=== PATIENT | male | born 1970 | race Caucasian/White ===

== ENCOUNTER → 2017-12-22 16:20 | Outpatient (CLI) | payer OTHER, SELFPAY ==
[2017-12-22 17:36] LABS: Absolute Lymphocyte Count 1.92 X10^3/ul (0.83-4.51); Absolute Neutrophil Count 3.3 X10^3/uL (2.0-7.7); Basophil# 0.04 X10^3/uL; Basophil% 0.7 % (0-1); Eosinophil# 0.05 X10^3/uL; Eosinophils% 0.8 % (0-5); Hematocrit 49.4 % (40-54); Hemoglobin 16.7 g/dl (13.0-16.5); Lymphocyte # 1.92 X10^3/ul (4.0); Lymphocyte % 32.5 % (19-41); Mean Corp Hgb Conc 33.8 g/gl (32-36); Mean Corpuscular Hgb 29.8 pg (27.0-32.0); Mean Corpuscular Volume 88.1 fL (80-94); Mean Platelet Vol. 12.5 fl (6.2-12.0); Monocyte# 0.59 X10^3/uL; Neutrophil % 55.8 % (47-70); Platelet Count 180 K/mm3 (150-450); RBC Distribution Width CV 14.4 % (11.6-14.6); RBC Distribution Width SD 46.7 fl (35.1-43.9); Red Blood Count 5.61 M/mm3 (4.6-6.2); White Blood Count 5.9 K/mm3 (4.4-11.0)
[2017-12-22 17:50] LABS: POSITIVE COUNT NO; POSITIVE DIFFERENTIAL NO; POSITIVE MORPHOLOGY NO
[2017-12-22 17:56] LABS: ALB/GLOB Ratio 1.1 RATIO (0.9-2.4); AST(SGOT) 25 U/L (15-37); Alanine Aminotransfer ALT/SGPT 37 U/L (16-61); Alkaline Phosphatase 65 U/L (45-117); Anion Gap 8 (5-15); BUN 11 mg/dL (7-18); BUN/Creat Ratio 13.1 RATIO (10-20); Calcium,Total 9.6 mg/dL (8.5-10.1); Chloride 101 mmol/L (98-107); Cholesterol 162 mg/dL (200); Creatinine, Serum 0.84 mg/dL (0.70-1.30); EST Glomerular Filtration Rate 104 mL/min (>60); Est Glom Filt Rate - Afr Amer 125 mL/min (>60); Globulin 3.7 g/dL (2.2-4.2); Glucose 88 mg/dL (74-106); High Density Lipoprotein 57 mg/dL; Potassium 4.8 mmol/L (3.5-5.1); Protein, Total 7.7 g/dL (6.4-8.2); Sodium Level 139 mmol/L (136-145); Triglycerides 78 mg/dL; Very Low Density Lipoprotein 16 mg/dL (5-40)
== END ==
PROVIDERS: Family Provider Family Medicine; PCP Family Medicine; Visit Provider Family Medicine
DX: Z00.00 Encounter for general adult medical examination without abnormal findings (principal)
CPT/HCPCS: 36415; 80053; 80061; 85025

== ENCOUNTER 2023-09-11 17:52 | Emergency (ER) | payer OTHER, SELFPAY ==
[2023-09-11 17:56] VITALS: BP 158/102; PULSE 83; RESP 18; TEMP 36.2; O2SAT 100; BMI 71.0
--- NOTE | 2023-09-11 18:14 | EX.ED.DYSGE1 ---
HPI History of Present Illness Chief Complaint: Flank Pain Informant: patient Narrative Narrative: Pepito primarily with right flank and right lower quadrant area pain. This patient has been straining to get urine out for some time now. He used to be on Flomax. He has been on saw palmetto for a while. He has a history of BPH. He is still passing urine. It does not have significant odor but it does burn somewhat. But patient's also been having pain mostly on the right side. 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 He had this repaired surgery about 7 or 8 years ago and has really not had problems since. He has not had fevers or chills. He is not really eating but he is not actually nauseated. He is moving bowels but less because he is not eating. [facility] Medical History Bladder fistula Home Medications tamsulosin 0.4 mg capsule 0.4 mg PO DAILY 03/21/16 [History Last Taken 04/02/16 22:00] hydrocodone-acetaminophen 5-325mg 5mg-325mg 1 tab PO Q4H PRN PRN Pain ##15 04/04/16 [Rx Last Taken Unknown] sulfamethoxazole 800 mg-trimethoprim 160 mg tablet 1 tab PO BIDCM ##7 04/07/16 [Rx Last Taken Unknown] tamsulosin 0.4 mg capsule (Flomax) 0.4 mg PO DAILY #30 caps 09/11/23 [Rx Last Taken Unknown] Allergy/AdvReac Type Severity Reaction Status Date / Time erythromycin base AdvReac Other Verified 09/11/23 17:55 [Erythromycin Base] Social History Smoking Status: Never smoker ROS ROS ED ROS Narrative A complete review of systems was performed and is negative except as documented in the history of present illness. Some specific details below. Constitutional: No recent fevers or chills. He does have some malaise EYE: No visual complaints or pain. ENT: No difficulty swallowing. No swelling. No pain. CV: No chest pain or palpitations. Respiratory: No dyspnea. No hemoptysis. No difficulty taking breaths. GI: Please see history of present illness. : See history of present illness Musculoskeletal: No recent trauma. No pains. Skin: No rash. Nondiaphoretic. Neuro: No weakness or numbness. Endocrine: No polyuria or polydipsia. EXAM Physical Exam Narrative Exam Narrative: CONSTITUTIONAL: Patient is nontoxic in appearance. The patient looks comfortable. HEENT: No notable trauma. Mucous membranes moist. EYES: No conjunctival injection. No proptosis. CARDIOVASCULAR: Regular rate. Regular rhythm. No notable murmur. No JVD. RESPIRATORY: No respiratory distress. Breathing is unlabored. No wheezes. No rhonchi. No rales. No pain with a deep breath. GASTROINTESTINAL: Not distended. Bowel sounds are normal. Does have some mild tenderness low and toward the right and a little bit in the middle. I do not feel an enlarged bladder on exam. He does have some redundant tissue because he has lost over 50 pounds in the last 6 months intentionally through intermittent fasting. GENITOURINARY: No tenderness over the bladder. No CVA tenderness. MUSCULOSKELETAL: Atraumatic. No peripheral edema. NEUROLOGICAL: Patient is alert and appropriate. No focal deficit noted. SKIN: No noted rashes. No diaphoresis. PSYCHIATRIC: Patient is calm. Mood is appropriate. Const Vital Signs: 09/11/23 17:56 09/11/23 18:18 Temperature 97.2 F L 97.2 F L Temperature Source Temporal Temporal Pulse Rate 83 83 Respiratory Rate 18 18 Blood Pressure 158/102 H 158/102 H Blood Pressure Mean 120 120 Pulse Ox 100 100 Oxygen Delivery Method Room Air Room Air MDM MDM MDM Narrative Medical decision making narrative: My independent interpretation of the patient's CT of the abdomen shows a very large bladder and bilateral hydroureter and hydronephrosis. This is likely due to his history of BPH and being off medications. Final reading is similar. They do note some mild thickening of the bladder. Patient's CBC is overall normal. Patient's electrolytes do show a slight bump of his creatinine 1.31. This is likely due to ongoing urinary obstruction. I believe he has overflow incontinence which is what is causing frequency. Lactate is normal LFTs are normal. Knoop Urine shows no signs of infection. Nurse was placing a Mcqueen. The Mcqueen would only go in about 1 cm then would stop. Patient has had a catheter in the past. I attempted and had the same problem. We then got a 14 [place] coud?. This was able to pass through the narrowing. It was able to pass through the prostate. It took a single attempt. We got clear pale yellow urine out without any blood. He tolerated this well. We let him rest. He has now had about 1200 cc out. He feels markedly better. Plan will be to get him home. He will follow-up with his urologist with making a call in the morning. I will get him started back on Flomax. This is on his med list but he has not been on it for a couple years. Lab Data Attestation: I reviewed the patient's lab results. Labs: Laboratory Results - last 24 hr 09/11/23 09/11/23 18:20 18:47 WBC 7.0 RBC 5.48 Hgb 16.0 Hct 49.2 MCV 89.8 MCH 29.2 MCHC 32.5 RDW Std Deviation 47.7 H RDW Coeff of Tono 14.5 Plt Count 272 MPV 10.4 Immature Gran % (Auto) 0.300 Neut % (Auto) 67.7 Lymph % (Auto) 12.6 L [place] % (Auto) 15.4 H Eos % (Auto) 3.4 Baso % (Auto) 0.6 Absolute Neuts (auto) 4.8 Absolute Lymphs (auto) 0.88 Nucleated RBC % 0 Sodium 138 Potassium 3.4 L Chloride 105 Carbon Dioxide 24.0 Anion Gap 9 BUN 11 Creatinine 1.31 H Estim Creat Clear Calc 74.95 Est GFR (MDRD) Af Amer 73 Est GFR (MDRD) Non-Af 61 BUN/Creatinine Ratio 8.4 L Glucose 111 H Lactic Acid 1.9 Calcium 10.0 Total Bilirubin 0.80 AST 26 ALT 32 Alkaline Phosphatase 92 Total Protein 8.3 H Albumin 3.8 Globulin 4.5 H Albumin/Globulin Ratio 0.8 L Lipase 33 Urine Color Yellow Urine Clarity Clear Urine pH 7.0 Ur Specific [place] 1.005 Urine Protein Negative Urine Glucose (UA) Normal Urine Ketones Negative Urine Occult Blood 25 H Urine Nitrite Negative Urine Bilirubin Negative Urine Urobilinogen Normal Ur Leukocyte Esterase 25 H Urine RBC 0 SEEN Urine WBC 0-5 SEEN Ur Squamous Epith Cells 0-5 SEEN Urine Bacteria 0 SEEN Urine Mucus 0 SEEN Radiography Diagnostic Testing: Clinical Impression(s) from Imaging Studies Abdomen/Pelvis CT 09/11/23 19:37 IMPRESSION: Mild bilateral hydronephrosis with slight perinephric stranding. Bilateral hydroureters. No stone is identified. Slight wall thickening of the urinary bladder. Electronically Signed: Mikel Hernandez DO at 20:22 EST , Discharge Plan Triage Chief Complaint: Flank Pain Other Complaint: Lower Extremity Injury ED Provider: Adihtya Perkins Dx/Rx/DC Orders Clinical Impression: Acute urinary obstruction, Elevated serum creatinine, History of BPH Instructions: ED Mcqueen Catheter, Care Prescriptions: New tamsulosin [Flomax] 0.4 mg capsule 0.4 mg PO DAILY Qty: 30 0RF No Action tamsulosin 0.4 MG capsule 0.4 mg PO DAILY hydrocodone-acetaminophen 1 TABLET tablet 1 tab PO Q4H PRN PRN (Reason: Pain) Qty: 15 0RF sulfamethoxazole-trimethoprim 1 TABLET tablet 1 tab PO BIDCM Qty: 7 0RF Primary Care Provider: Hira Parker Referrals: Bc Bell MD [Med Staff - Active Staff] - 3-5 Days Hira Parker DO [Primary Care Provider] - Disposition Disposition: Home, Self Care
[2023-09-11 18:18] VITALS: BP 158/102; PULSE 83; RESP 18; TEMP 36.2; O2SAT 100
[2023-09-11 18:57] LABS: Bacteria 0 SEEN /hpf (None Seen); Mucous, Urine 0 SEEN /hpf (<or=2+); Red Blood Cells-Urine 0 SEEN /hpf (0-5)
[2023-09-11 18:59] LABS: Absolute Lymphocyte Count 0.88 X10^3/uL (0.83-4.51); Absolute Neutrophil Count 4.8 X10^3/uL (2.0-7.7); Basophil# 0.04 X10^3/uL; Basophil% 0.6 % (0-1); Eosinophil# 0.24 X10^3/uL; Eosinophils% 3.4 % (0-5); Hematocrit 49.2 % (40-54); Lymphocyte # 0.88 X10^3/ul (0.83-4.51); Lymphocyte % 12.6 % (19-41); Mean Corp Hgb Conc 32.5 g/dL (32-36); Mean Corpuscular Hgb 29.2 pg (27.0-32.0); Mean Corpuscular Volume 89.8 fL (80-94); Mean Platelet Vol. 10.4 fl (6.2-12.0); Monocyte# 1.08 X10^3/uL; Monocyte% 15.4 % (0-10); NRBC Flagged by Analyzer 0 % (0-5); Neutrophil # 4.75 X10^3/uL (2.7-7.7); Neutrophil % 67.7 % (47-70); Platelet Count 272 K/mm3 (150-450); RBC Distribution Width CV 14.5 % (11.6-14.6); RBC Distribution Width SD 47.7 fl (35.1-43.9); Red Blood Count 5.48 M/mm3 (4.6-6.2)
[2023-09-11 19:02] LABS: Color, Urine Yellow (Yellow); Glucose, Dipstick Normal (Normal); Ketone-Dipstick Negative (Negative); Leukocyte Esterase-Dipstick 25 /ul (Negative); Nitrite-Dipstick Negative (Negative); Occult Blood-Urine 25 /ul (Negative); Protein-Dipstick Negative (Negative); Specific Gravity, Urine 1.005 (1.002-1.030); Urine Bilirubin Dipstick Negative (Negative); Urine Clarity Clear (Clear); Urine Urobilinogen Normal (Normal)
[2023-09-11 19:07] LABS: Squamous Epithelial Cells - UA 0-5 SEEN /hpf (0-5); White Blood Cells 0-5 SEEN /hpf (0-5)
[2023-09-11] MEDS: Ondansetron 4 MG/2 ML Vial IV (19:15)
[2023-09-11] MEDS: 0.9% Normal Saline (1000mL) 1,000 ML 1000 ML IV (19:15)
[2023-09-11 19:19] LABS: ALB/GLOB Ratio 0.8 RATIO (0.9-2.4); AST(SGOT) 26 U/L (15-37); Alanine Aminotransfer ALT/SGPT 32 U/L (16-61); Albumin, Serum 3.8 g/dL (3.2-5.0); Alkaline Phosphatase 92 U/L (45-117); Anion Gap 9 (5-15); BUN 11 mg/dL (7-18); BUN/Creat Ratio 8.4 RATIO (10-20); Chloride 105 mmol/L (98-107); Creatinine, Serum 1.31 mg/dL (0.70-1.30); EST Glomerular Filtration Rate 61 mL/min (>60); Est Glom Filt Rate - Afr Amer 73 mL/min (>60); Estimated Creatinine Clearance 74.95 ml/min; Globulin 4.5 g/dL (2.2-4.2); Glucose 111 mg/dL (74-106); Lipase 33 U/L (13-75); Potassium 3.4 mmol/L (3.5-5.1); Protein, Total 8.3 g/dL (6.4-8.2); Sodium Level 138 mmol/L (136-145)
--- NOTE | 2023-09-11 19:37 | CT_ITS ---
STUDY: CT ABDOMEN AND PELVIS WITH CONTRAST REASON FOR EXAM: Male, 53 years old. Pain RADIATION DOSAGE (If Supplied By Facility): CTDIvol = ( 16.30 ) mGy, DLP = ( 1308.07 ) mGycm TECHNIQUE: Transaxial images were obtained from the dome of the diaphragm to the symphysis pubis without oral contrast. IV 100mL Isovue-300 was administered. Sagittal and coronal images were reconstructed. Individualized dose optimization techniques were used for this CT. COMPARISON: March 02, 2016. FINDINGS: The visualized lung bases are unremarkable. The visualized portions of the heart are within normal limits. Normal liver. Nonvisualization of the gallbladder. No significant dilatation of the extrahepatic biliary system. Normal spleen. Normal pancreas. Normal bilateral adrenal glands. Mild bilateral hydronephrosis with slight perinephric stranding. Bilateral hydroureters. No stone is identified. Normal visualized stomach. Normal small intestine. Normal colon. The appendix is not visualized. Normal abdominal aorta. Normal inferior vena cava. Normal retroperitoneum. Slight wall thickening of the urinary bladder. Normal abdominal wall. Normal osseous structures. CT/Abdomen/Pelvis W IV Cont ONLY IMPRESSION: Mild bilateral hydronephrosis with slight perinephric stranding. Bilateral hydroureters. No stone is identified. Slight wall thickening of the urinary bladder. Electronically Signed: Mikel Hernandez DO at 20:22 EST ,
[2023-09-11 20:09] LABS: Lactic Acid 1.9 mmol/L (0.4-1.9)
[2023-09-11] MEDS: Morphine 4 MG/ML Syringe IV (20:10)
[2023-09-11 22:53] VITALS: BP 134/75; PULSE 62; RESP 16; TEMP 36.7; O2SAT 100
[2023-09-11 22:55] VITALS: BP 134/75; PULSE 62; RESP 16; TEMP 36.7; O2SAT 100
== END 2023-09-11 22:56 | disposition home or self-care (01) ==
PROVIDERS: Emergency Provider Emergency Medicine; PCP Family Medicine; Visit Provider Emergency Medicine
DX: N13.30 Unspecified hydronephrosis (principal); N40.0 Benign prostatic hyperplasia without lower urinary tract symptoms; N13.4 Hydroureter; R79.89 Other specified abnormal findings of blood chemistry
CPT/HCPCS: 51702; 74177; 80053; 81001; 83605; 83690; 85025; 87086; 96361; 96374; 96375; 99285; J7030; Q9967; A4216; J2405

== ENCOUNTER → 2024-03-21 | Outpatient (CLI) | payer OTHER, SELFPAY ==
[2024-03-21 13:05] LABS: PSA,Total- Diagnostic 3.57 ng/mL (0.0-4.0)
== END | disposition home or self-care (01) ==
PROVIDERS: PCP Family Medicine; Visit Provider Urology
DX: N40.1 Benign prostatic hyperplasia with lower urinary tract symptoms (principal)
CPT/HCPCS: 36415; 84153

== ENCOUNTER → 2024-03-26 | Outpatient (CLI) | payer OTHER, SELFPAY | END | disposition home or self-care (01) | PROVIDERS: PCP Family Medicine; Visit Provider Urology | DX: R30.0 Dysuria (principal) | CPT/HCPCS: 87077; 87086; 87088; 87186 ==

== ENCOUNTER → 2024-12-17 | Outpatient (CLI) | payer BC, SELFPAY ==
--- NOTE | 2024-12-17 10:22 | CT_ITS ---
PROCEDURE: ABDOMEN/PELVIS WITH CONTRAST 12/17/2024 REASON FOR EXAM: GROSS HEMATURIA TECHNIQUE: Prone and supine chest CT with intravenous contrast, high resolution CT (HRCT) protocol. Coronal and Sagittal reconstruction series were provided. CONTRAST: Isovue 370 VOLUME: 100mL One or more dose reduction techniques were used (e.g., Automated exposure control, adjustment of the mA and/or kV according to patient size, use of iterative reconstruction technique). RADIATION DOSE SUMMARY: Total DLP: 2680.89 mGycm COMPARISON: September 11, 2023. FINDINGS: Lung bases remain clear. There evidence of pleural effusion or pericardial effusion. Low the hemidiaphragms, liver and spleen remain normal. Gallbladder is again seen to be absent. Bile ducts are not dilated. Pancreas and adrenal glands remain normal. Both kidneys are normal in appearance. Intrarenal collecting is, ureters, and urinary bladder are unremarkable as visualized considering the only partially distended state of the urinary bladder at the time of examination today. Urinary bladder floor is dentin elevated, however, and by a moderately enlarged prostate. Seminal vesicles are unremarkable. There is no evidence of bowel obstruction. There is no evidence of diverticulitis. No abnormal intraperitoneal or retroperitoneal fluid collection is seen. There is no evidence of intra- abdominal lymphadenopathy. Review of bone windows reveals no evidence for suspicious osseous lesion. CT/Abdomen/Pelvis WITH Contrast IMPRESSION: Enlarged prostate. Correlation with serum PSA level is suggested. Status post remote cholecystectomy. Reading Location: [place] [id number]
== END | disposition home or self-care (01) ==
LOC: CT 09:57
PROVIDERS: PCP Family Medicine; Referring Provider Urology; Visit Provider Urology
DX: R31.0 Gross hematuria (principal)
CPT/HCPCS: 74177; Q9967

== ENCOUNTER → 2025-03-03 | Outpatient (CLI) | payer BC, SELFPAY ==
--- NOTE | 2025-03-03 08:51 | EKG12_ITS ---
Test Reason : PREOP Blood Pressure : */* mmHG Vent. Rate : 70 BPM Atrial Rate : 70 BPM P-R Int : 170 ms QRS Dur : 92 ms QT Int : 396 ms P-R-T Axes : 20 -16 28 degrees QTcB Int : 427 ms Normal sinus rhythm normal When compared with ECG of 30-Mar-2016 08:19, No significant change was found Confirmed by Kobe Callahan ([id number]), design editor INDY LEWIS ([id number]) on 03/03/2025 10:43:24 AM Referred By: Bc Bell Confirmed By: Kobe Callahan
--- OUTSIDE RECORDS SUMMARY | 2025-03-03 10:23 | XMS RPT_ITS | CCD ---
Author Organization [facility] Care Team Providers Care Technical Support Intern Name Role Phone VESTA LI Unavailable Unavailable NIK PARKER Unavailable Unavailable Dr. Nik Parker DO Primary Care Provider [phone] Arabella [place], Dr. Bc Romero Attending Provider [phone] Arabella [place], Dr. Bc Romero Referring Provider Nik Parker Primary Care Unavailable Bc Bell Referring Unavailable Bc Bell Attending Unavailable Bc Bell Attending Unavailable Nik Parker Primary Care Unavailable ArabellaBc hoffman Referring Unavailable Arabella, Bc Romero Attending Unavailable Nik Parker Primary Care Unavailable Nik Parker Primary Care Unavailable ArabellaBc hoffman Attending Unavailable Nik Parker Primary Care Unavailable Bc Bell Attending Unavailable Allergies Allergy Classification Reported Allergen(s) Allergy Type Date of Onset Reaction(s) Facility (1 source) Erythromycin Drug Allergy 09-11-2023 Other [facility] (1 source) Erythromycin Drug Allergy 09-11-2023 [facility] Repository Medications Current Medications Medication Drug Class(es) Dates Sig (Normalized) Sig (Original) acetaminophen 325 mg / HYDROcodone bitartrate 5 mg oral tablet (1 source) Opioid Agonist Start: 04-04-2016 Hydrocodone-Dex taminophen 1 TABLET tablet Active 1 {tbl} PO EVERY 4 HOURS NEEDED as needed for Pain April 04, 2016 12:00am sulfamethoxazole 800 mg / trimethoprim 160 mg oral tablet (1 source) Dihydrofolate Reductase Inhibitor Antibacterial, Sulfonamide Antimicrobial Start: 04-07-2016 Sulfamethoxazol e-Trimethoprim 1 TABLET tablet Active 1 {tbl} PO TWICE DAILY WITH MEALS April 07, 2016 12:00am tamsulosin hydrochloride 0.4 mg oral capsule (2 sources) alpha-Adrenergic Flor Start: 03-21-2016 take 1 capsule by mouth once daily Tamsulosin (Flomax) 0.4 mg capsule Active 0.4 mg PO DAILY September 11, 2023 1:00am Problems Problem Classification Problem Date Documented Date Episodic/Chronic Diverticulosis and diverticulitis (2 sources) Diverticulitis of intestine; Translations: [Diverticulitis of intestine, part unspecified, without perforation or abscess without bleeding] 03-03-2015 Chronic Esophageal disorders (1 source) Gastroesophageal reflux disease; Translations: [Gastro-esophageal reflux disease without esophagitis] 07-06-2014 Chronic Genitourinary symptoms and ill-defined conditions (3 sources) Urinary tract obstruction; Translations: [Obstructive and reflux uropathy, unspecified] Onset: 04-03-2024 09-19-2023 Episodic Hyperplasia of prostate (1 source) Benign prostatic hyperplasia with lower urinary tract symptoms; Translations: [Benign prostatic hyperplasia with lower urinary tract symptoms] Onset: 04-05-2024 Chronic Other male genital disorders (1 source) H/O: male genital disorder; Translations: [Personal history of other diseases of male genital organs] 09-19-2023 Episodic Other nutritional; endocrine; and metabolic disorders (1 source) Body mass index 40+ - severely obese; Translations: [Morbid (severe) obesity due to excess calories] 07-06-2014 Chronic Other screening for suspected conditions (not mental disorders or infectious disease) (1 source) Serum creatinine raised; Translations: [Other specified abnormal findings of blood chemistry] 09-19-2023 Episodic Septicemia (except in labor) (1 source) Sepsis; Translations: [Sepsis, unspecified organism] 03-03-2015 Episodic Results Test Name Value Interpretation Reference Range Facil ity Abdomen/Pelvis WITH Contrast on 12-17-2024 Abdomen/Pelvis WITH Contrast [facility] Imaging Services [address] [place] [id number] Abdomen/Pelvis WITH Contrast MR#: [id number] Acct: [id number] Name: WAYNE DOUGLASS Rep #: [id number] : 1970 M 54 From: Kevin Chung PCP: Dr. Nik Parker, DO Status: REG CLI Study: Abdomen/Pelvis WITH Contrast Date of Exam: Exam# [id number] Ordering Dr: Bc Bell MD PROCEDURE: ABDOMEN/PELVIS WITH CONTRAST 12/17/2024 REASON FOR EXAM: GROSS HEMATURIA TECHNIQUE: Prone and supine chest CT with intravenous contrast, high resolution CT (HRCT) protocol. Coronal and Sagittal reconstruction series were provided. CONTRAST: Isovue 370 VOLUME: 100mL One or more dose reduction techniques were used (e.g., Automated exposure control, adjustment of the mA and/or kV according to patient size, use of iterative reconstruction technique). RADIATION DOSE SUMMARY: Total DLP: 2680.89 mGycm COMPARISON: September 11, 2023. FINDINGS: Lung bases remain clear. There evidence of pleural effusion or pericardial effusion. Low the hemidiaphragms, liver and spleen remain normal. Gallbladder is again seen to be absent. Bile ducts are not dilated. Pancreas and adrenal glands remain normal. Both kidneys are normal in appearance. Intrarenal collecting is, ureters, and urinary bladder are unremarkable as visualized considering the only partially distended state of the urinary bladder at the time of examination today. Urinary bladder floor is dentin elevated, however, and by a moderately enlarged prostate. Seminal vesicles are unremarkable. There is no evidence of bowel obstruction. There is no evidence of diverticulitis. No abnormal intraperitoneal or retroperitoneal fluid collection is seen. There is no evidence of intra-abdominal lymphadenopathy. Review of bone windows reveals no evidence for suspicious osseous lesion. CT/Abdomen/Pelvis WITH Contrast IMPRESSION: Enlarged prostate. Correlation with serum PSA level is suggested. Status post remote cholecystectomy. Reading Location: [place] [address] CC: Dr. Bc Bell MD; Dr. Nik Parker DO Cost Control Specialist: Signed Normal [facility] Urine Cultureon 03-28-2024 [facility] Staphylococcus epidermidis [place] Count 50,000-80,000 Staphylococcus epidermidis: REACTION cefOXitin Susc Islt NEG Clindamycin.induced Susc Islt NEG Gentamicin Islt TAWNYA <=0.5 S Linezolid Islt TAWNYA 1 S Nitrofurantoin Islt TAWNYA <=16 S Oxacillin Susc Islt <=0.25 S Tetracycline Islt TAWNYA <=1 S Vancomycin Islt TAWNYA <=0.5 S Normal [facility] Comment on above: Performed By: #### M [id number] #### [facility] Laboratory [address] [place], [place], [address] PSA,Total- Diagnosticon 02-24 PSA, DIAGNOSTIC 3.57 ng/mL Normal 0.0-4.0 [facility] Comment on above: Result Comment: This test was performed using the TPSA assay method for the Helleroy chemistry system. Values obtained with different assay methods cannot be used interchangably. When changing PSA assays in the course of monitoring a patient, additional sequential testing should be carried out to confirm baseline values. Performed By: #### L [id number] #### [facility] [address] [place], [place], [address] [facility] Note on 03-30-2018 [facility] Note Normal [facility] ([place]) Pat Eduon 03-30-2018 [facility] [place]) Patient Summary Documentson 03-30-2018 Patient Summary Documents Formerly [facility]) Encounters Encounter Date Encounter Type Care Provider Facility Start: 03-03-2025 ambulatory Bc Matthews lity:[facility] Start: 02-03-2025 Encounter for preprocedural cardiovascular examination Bc Bell [facility] Start: 12-27-2024 Encounter for preprocedural laboratory examination Bc Bell [facility] Start: 12-27-2024 ambulatory Bc Matthews lity:[facility] Start: 12-17-2024 End: 12-17-[address] Nik Parker DO Work Phone: [facility] Work Phone: Start: 12-17-2024 End: 12-17-[address] Bc Bell MD -Cat Scan, [facility] Work Phone: Start: 12-17-2024 End: 12-17-2024 ambulatory Nik Keith Facility:[facility] Start: 03-26-2024 End: 03-26-2024 ambulatory Nik Keiht Facility:[facility] Start: 03-21-2024 End: 03-21-2024 ambulatory Nik Parker Facility:[facility] Start: 03-30-2018 End: 03-30-2018 Emergency department patient visit VESTA LI Facility:B Procedures Date Procedure Procedure Detail Performing Clinician Start: 12-17-2024 Computed tomography of abdomen and pelvis with contrast Dr. Nik Parker DO Work Phone: Payers Date Payer Category Payer Unknown [id number] 2024 Self-pay 2024 Unknown [id number] 2018 Unknown [id number] 2015 Unknown [facility] [id number] Unknown [employer] [id number] Unknown [id number] 2.16.8 [id number] Unknown [id number] 2.16.8 [id number] Unknown [id number] 2.16.8 [id number] Unknown [id number] 2.16.8 [id number] Unknown [id number] 2.16.8 [id number] Social History Date Type Detail Facility [facility]: [facility] Start: 03-03-2015 None None [facility] Start: 03-03-2015 Spouse/ Significant Other Spouse/ Significant Other [facility] Start: 07-06-2014 Non-smoker Non-smoker [facility] Start: 12-21-2024 Sex Male (finding) [facility] Start: 1970 Sex Assigned At Male [facility] Radiology Diagnostic study note 12-18-2024 Note Date & Type Note Facility 12-18-2024 Radiology Diagnostic study note [facility] Imaging Services [address] [place] [address] Abdomen/Pelvis WITH Contrast MR#: [id number] Acct: [id number] Name: WAYNE DOUGLASS Rep #: [id number] : 1970 M 54 From: Sae Alvarez MD PCP: Dr. Nik Parker, DO Status: REG CLI Study:Abdomen/Pelvis WITH Contrast Date of Ex am: 12/17/24 Exam# [id number] Ordering Dr: Misty Bell MD PROCEDURE: ABDOMEN/PELVIS WITH CONTRAST 12/17/2024 REASON FOR EXAM: GROSS HEMATURIA TECHNIQUE: Prone and supine chest CT with intravenous contrast, high resolution CT (HRCT) protocol. Coronal and Sagittal reconstruction series were provided. CONTRAST: Isovue 370 VOLUME: 100mL One or more dose reduction techniques were used (e.g., Automated exposure control, adjustment of the mA and/or kV according to patient size, use of iterative reconstruction technique). RADIATION DOSE SUMMARY: Total DLP: 2680.89 mGycm COMPARISON: September 11, 2023. FINDINGS: Lung bases remain clear. There evidence of pleural effusion or pericardial effusion. Low the hemidiaphragms, liver and spleen remain normal. Gallbladder is again seen to be absent. Bile ducts are not dilated. Pancreas and adrenal glands remain normal. Both kidneys are normal in appearance. Intrarenal collecting is, ureters, and urinary bladder are unremarkable as visualized considering the only partially distended state of the urinary bladder at the time of examination today. Urinary bladder floor is dentin elevated, however, and bya moderately enlarged prostate. Seminal vesicles are unremarkable. There is no evidence of bowel obstruction. There is no evidence of diverticulitis. No abnormal intraperitoneal or retroperitoneal fluid collection is seen. There is no evidence of intra-abdominal lymphadenopathy. Review of bone windows reveals no evidence for suspicious osseous lesion. CT/Abdomen/Pelvis WITH Contrast IMPRESSION: Enlarged prostate. Correlation with serum PSA level is suggested. Status post remote cholecystectomy. Reading Location: [place] [address] CC: Dr. Bc Bell MD; Dr. Nik Parker DO ~ Cost Control Specialist: Signed [facility] Evaluation note Note Date & Type Note Facility Evaluation note No assessment information availa ble [facility] Work Phone: Reason for referral (narrative) Note Date & Type Note Facility Reason for referral (narrative) No reason for referral information available [facility] Work Phone: Summary Purpose Family History No Family History Records Found Relationship Condition Age at Onset Recorded Date/T bre Unknown Family History?Diabetes, - Unknown J 2014 8:23pm Family History?Diabe jil, Heart Disease, - Unknown July 06, 2014 5:30pm Family History?Diabe jil, Heart Disease, - Unknown March 03, 2015 8:23pm Family History?Heart Disease, - Unknown March 03, 2015 8:23pm Advance Directives No Advanced Directives Records Found Advance Directive Response Recorded Date/ Time Advance Directives No April 03 16 8:13am Chief Complaint and Reason for Visit Chief Complaint Admit Date R31.0 Gross hematuria December 17, 2024 9 :54am Additional Source Comments (unrecognized sect ion and content) No Status Records FoundNo Status Records Found INFORMATION SOURCE (unrecogn ized section and content) DATE CREATED AUTHOR 04/20/2018 [facility] ([place]) DATE CREATED AUTHOR AUTHOR'S ORGANIZ ATION 02/03/2025 [facility] Care Teams (unrecognized sec tion and content) Team Status: Active Member Role Status Dates Dr. Nik Parker DO Primary Care Provider Active Team Status: Inactive Member Role Status Dates Dr. Nik Parker DO Primary Care Provider Active Start: December 17, 2024 End: December 17, 2024 Dr. Bc Bell MD Attending Provider Active Start: December 17, 2024 End: December 17, 2024 Dr. Bc Bell MD Referring Provider Active Start: December 17, 2024 End: December 17, 2024 Goals (unrecognized section and content) Goals may be documented in a n alternate section FOR RECORDS PERTAINING TO PATIENTS WHO ARE OR HAVE BEEN ENROLLED IN A CHEMICAL DEPENDENCY/SUBSTANCEABUSE PROGRAM, SOME INFORMATION MAY BE OMITTED. This clinical summary was aggregated from multiple sources. Caution should be exercised in using it in the provision of clinical care. This summary normalizes information from multiple sources, and as a consequence, information in this document may materially change the coding, format and clinical context of patient data. In addition, data may be omitted in some cases. CLINICAL DECISIONS SHOULD BE BASED ON THE PRIMARY CLINICAL RECORDS. [facility] [employer] [facility]. provides no warranty or guarantee of the accuracy or completeness of information in this document.
== END | disposition home or self-care (01) ==
PROVIDERS: PCP Family Medicine; Referring Provider Urology; Visit Provider Urology
DX: Z01.810 Encounter for preprocedural cardiovascular examination (principal)
CPT/HCPCS: 93005

== ENCOUNTER → 2025-03-04 | Outpatient (CLI) | payer BC, SELFPAY ==
[2025-03-04 11:44] LABS: Hematocrit 45.9 % (40-54); Hemoglobin 15.5 g/dL (13.0-16.5); Mean Corp Hgb Conc 33.8 g/dL (32-36); Mean Corpuscular Hgb 29.8 pg (27.0-32.0); Mean Corpuscular Volume 88.1 fL (80-94); Mean Platelet Vol. 10.3 fl (6.2-12.0); Platelet Count 249 K/mm3 (150-450); RBC Distribution Width SD 44.9 fl (35.1-43.9); Red Blood Count 5.21 M/mm3 (4.6-6.2); White Blood Count 5.6 K/mm3 (4.4-11.0)
[2025-03-04 12:34] LABS: Anion Gap 11 (5-15); BUN 15 mg/dL (4-19); BUN/Creat Ratio 17.3 RATIO (10-20); Calcium,Total 8.7 mg/dL (7.6-11.0); Carbon Dioxide 20.8 mmol/L (21.0-32.0); Chloride 104 mmol/L (98-108); Creatinine, Serum 0.89 mg/dL (0.70-1.20); EST Glomerular Filtration Rate 101 (>60); Glucose 100 mg/dL (70-99); Potassium 4.4 mmol/L (3.3-5.1); Sodium Level 137 mmol/L (133-145)
== END | disposition home or self-care (01) ==
LOC: LAB 10:43
PROVIDERS: PCP Family Medicine; Referring Provider Urology; Visit Provider Urology
DX: Z01.812 Encounter for preprocedural laboratory examination (principal)
CPT/HCPCS: 36415; 80048; 85027